=== PATIENT | female | born 1955 | race Caucasian/White ===

== ENCOUNTER 2025-10-28 18:45 | Day surgery (SDC) | payer MEDICARE, OTHER, SELFPAY ==
[2025-10-28] VITALS (7 sets, daily range): BP systolic 94–136; BP diastolic 47–64; BMI 26.5; BMI 26.2
[2025-10-28 14:58] LABS: Hematocrit 41.7 % (37.0-47.0); Hemoglobin 13.9 g/dL (12.0-16.0); Mean Corp Hgb Conc. 33.3 g/dL (33.0-37.0); Mean Corpuscular Volume 94.1 fL (81.0-99.0); Nucleated Red Blood Cells % 0 %; Platelet Count 214 10^3/uL (130-400); Red Cell Dist. Width 12.4 % (11.5-14.5)
[2025-10-28 15:22] LABS: Troponin I < 0.012 ng/ml
[2025-10-28 15:23] LABS: ALT (SGPT) 28 U/L (0-35); AST (SGOT) 315 U/L (14-36); Albumin 4.5 g/dl (3.5-5.0); Alkaline Phosphatase 194 U/L (38-126); Blood Urea Nitrogen 25 mg/dl (7-17); Calcium 9.4 mg/dl (8.4-10.2); Carbon Dioxide 31 mmol/L (22-30); Chloride 103 mmol/L (98-107); Estimated Creatinine Clearance 89 ml/min; Glucose 119 mg/dl (70-99); Potassium 4.0 mmol/L (3.5-5.1); Sodium 139 mmol/L (135-145); Total Protein 7.5 g/dl (6.3-8.2); eGFR > 60.00
--- NOTE | 2025-10-28 16:02 | ED.GENMED ---
History of Present Illness
<Erin Milligan, AGRICULTURAL APPRAISER - Last Filed: 11/01/25 07:38>
General
Chief Complaint: Chest Pain
Source: patient and spouse
Exam Limitations: none
Time Seen by Provider: 10/28/25 14:41
Nursing documentation reviewed up to this point in time: agreed with
History of Present Illness
History of Present Illness:
70 yo female w h/o Parkinson's, GERD and ran out of her Protonix recently, melanoma upper back removed w R axillary lymph node removed 08/2025, presents for episode of chest pain began today around 10 a.m. while in her bedroom looking for something.
She described the pain as a sudden onset band-like sensation across the lower chest and upper abdomen, lasting about 30 minutes. [place] nauseous but did not vomit. After the pain started, took ASA 81 mg, called 911. Laid down and felt better. Has had
no further episodes of pain.
Past History
<Erin Milligan, AGRICULTURAL APPRAISER - Last Filed: 11/01/25 07:38>
Past History
ED Past Medical History: Cancer (melanoma upper back) and Other (parkinsons, OA)
ED Past Surgical History: Gynecological, Orthopedic and Other (melanoma removed upper R back 08/2024 with lymph nodes R axilla removed)
Social History
Tobacco: Non-smoker
Employment: Employed
Review of Systems
<Erin Milligan, AGRICULTURAL APPRAISER - Last Filed: 11/01/25 07:38>
Review of Systems
Allergies reviewed?: Yes
All Other Systems: ROS reviewed and negative except as documented in HPI and ROS
Constitutional: Reports fever
Phy Exam
<Erin Milligan, AGRICULTURAL APPRAISER - Last Filed: 11/01/25 07:38>
Physical Exam
Physical Exam:
GENERAL: No acute distress. A&Ox3.
CONSTITUTIONAL: Afebrile.
EYES: clear, conjunctivae normal
ENMT: moist mucus membranes, Pharynx nl
RESPIRATORY: Regular respirations, nonlabored, lungs clear.
CARDIOVASCULAR: Regular rate and rhythm, no murmurs, no rubs.
GI: Soft, nontender, normal BS
MUSCULOSKELETAL: Moves with ease. Well perfused.
SKIN: Warm, dry, pink
PSYCH: Normal mood and affect. Well kept, interactive and appropriate
NEUROLOGIC: Awake, alert and oriented. No focal neurological deficits
Scores
<Xiang Darby PA-C - Last Filed: 10/28/25 23:38>
Heart Score for Chest Pain Patients
STEMI patient?: Not applicable
Course
<Erin Milligan NP - Last Filed: 11/01/25 07:38>
Orders/Labs/Results
Orders:
Orders
10/28/25 11:57
Electrocardiogram (*1) Urgent
Reason for Study: Chest Pain
EKG- Treatment ONCE
10/28/25 12:05
IV Insert/Care/Rem.- Treatment PRN
10/28/25 14:47
Complete Blood Count/With Diff Urgent
Comprehensive Metabolic Panel Urgent
Troponin I Urgent
10/28/25 16:09
US Abdomen Complete/Upper Urgent
Comment:
Reason For Exam: pain like a band around upper abdomen
10/28/25 16:23
0.9% Sodium Chloride 1000 ml [Nss] 1,000 ml IV BOLUS
10/28/25 16:30
Add On- LAB Urgent
Tests Added?: lipase
10/28/25 17:53
Piperacillin/Tazo 3.375 Gram [Zosyn] 3.375 gram in 50 ml IV NOW
10/28/25 18:22
Admit/Transfer Patient As Directed
Co-Sign Provider:
Level of Care: Inpatient admission
Assign to:: Medical/Surgical
Physician / Group: marino
Diagnosis: acute cholecystitis
Reason for Hospitalization: acute cholecystitis
Expected length of stay greater than two midnights?: Yes
ELOS- Estimated Length of Stay in days: 2
I certify the patient meets the requirements for IP care: Yes
10/28/25 18:23
Code Status As Directed
Resuscitation Status: Full Code
PRN Pain Medication Management As Directed
May give lesser potent ordered pain med per pt: Yes
preference::
Protocol:: Medication orders for pain may be administered in a
manner that supports deferring to patient preference
when the pt is:
- Requesting an ordered lesser potent pain medication.
Least to most potent pain medications are defined
as: acetaminophen < NSAID < tramadol < opioids
(morphine, oxycodone, hydromorphone).
- Requesting a lesser dose of the same medication IF
ORDERED.
- Requesting a less intrusive route of administration
if both routes are prescribed by the provider (PO <
IV).
10/28/25 19:21
0.9% Sodium Chloride 1000 ml [Nss] 1,000 ml IV 80 mls/hr
HYDROmorphone [Dilaudid] 0.5 mg IV Q4HPRN PRN
Ondansetron Injectable [Zofran] 4 mg IV Q6HPRN PRN
10/28/25 19:21
SURGICAL CONSULT Routine
Consulting Provider: Harley Beckford
Was physician already notified: Yes
Activity As Directed
Activity Level: As Tolerated
Pneumatic Compression Sleeves As Directed
Type: Knee high
Vital Signs As Directed
Frequency: Per unit guidelines
DX Deep Vein Thrombosis Video Routine
10/28/25 22:00
Amantadine [Symmetrel] 100 mg PO TID
carbidopa-levodopa [Crexont] See Dose Instructions PO QID
carbidopa-levodopa [Crexont] See Dose Instructions PO QID
ropinirole See Dose Instructions PO HS
ropinirole See Dose Instructions PO HS
10/29/25 00:00
Piperacillin/Tazo 3.375 Gram [Zosyn] 3.375 gram in 50 ml IV Q6H
10/29/25 Breakfast
NPO
Allow oral meds: Yes
Allow clear liquids: Sips of Clears
10/29/25 06:18
Complete Blood Count/With Diff IN AM
Comprehensive Metabolic Panel IN AM
Abnormal Lab Results
10/28/25
14:47
MCH 31.4 H pg
(27.0-31.0)
Absolute Neuts (auto) 8.0 H 10^3/uL
(1.4-6.5)
Absolute Lymphs (auto) 0.7 L 10^3/uL
(1.2-3.4)
Neutrophils % 84.9 H %
(42.2-75.2)
Lymphocytes % 7.1 L %
(20.5-51.1)
Carbon Dioxide 31 H mmol/L
(22-30)
BUN 25 H mg/dl
(7-17)
Glucose 119 H mg/dl
(70-99)
Total Bilirubin 1.5 H mg/dl
(0.2-1.3)
AST 315 H U/L
(14-36)
Alkaline Phosphatase 194 H U/L
(38-126)
10/28/25 14:47
10/28/25 14:47
Vital Signs
Initial and Last Documented VS:
Initial Vital Signs
Temp Pulse Resp BP Pulse Ox
97.6 F 71 20 136/60 97
10/28/25 11:58 10/28/25 11:58 10/28/25 11:58 10/28/25 11:58 10/28/25 11:58
Last Documented Vital Signs
Temp Pulse Resp BP Pulse Ox
97.6 F 62 18 157/99 97
10/30/25 13:15 10/30/25 14:31 10/30/25 13:15 10/30/25 14:31 10/30/25 13:15
<Xiang Darby PA-C - Last Filed: 10/28/25 23:38>
Orders/Labs/Results
Orders:
Orders
10/28/25 11:57
Electrocardiogram (*1) Urgent
Reason for Study: Chest Pain
EKG- Treatment ONCE
10/28/25 12:05
IV Insert/Care/Rem.- Treatment PRN
10/28/25 14:47
Complete Blood Count/With Diff Urgent
Comprehensive Metabolic Panel Urgent
Troponin I Urgent
10/28/25 16:09
US Abdomen Complete/Upper Urgent
Comment:
Reason For Exam: pain like a band around upper abdomen
10/28/25 16:23
0.9% Sodium Chloride 1000 ml [Nss] 1,000 ml IV BOLUS
10/28/25 16:30
Add On- LAB Urgent
Tests Added?: lipase
10/28/25 17:53
Piperacillin/Tazo 3.375 Gram [Zosyn] 3.375 gram in 50 ml IV NOW
10/28/25 18:22
Admit/Transfer Patient As Directed
Co-Sign Provider:
Level of Care: Inpatient admission
Assign to:: Medical/Surgical
Physician / Group: marino
Diagnosis: acute cholecystitis
Reason for Hospitalization: acute cholecystitis
Expected length of stay greater than two midnights?: Yes
ELOS- Estimated Length of Stay in days: 2
I certify the patient meets the requirements for IP care: Yes
10/28/25 18:23
Code Status As Directed
Resuscitation Status: Full Code
PRN Pain Medication Management As Directed
May give lesser potent ordered pain med per pt: Yes
preference::
Protocol:: Medication orders for pain may be administered in a
manner that supports deferring to patient preference
when the pt is:
- Requesting an ordered lesser potent pain medication.
Least to most potent pain medications are defined
as: acetaminophen < NSAID < tramadol < opioids
(morphine, oxycodone, hydromorphone).
- Requesting a lesser dose of the same medication IF
ORDERED.
- Requesting a less intrusive route of administration
if both routes are prescribed by the provider (PO <
IV).
10/28/25 19:21
0.9% Sodium Chloride 1000 ml [Nss] 1,000 ml IV 80 mls/hr
HYDROmorphone [Dilaudid] 0.5 mg IV Q4HPRN PRN
Ondansetron Injectable [Zofran] 4 mg IV Q6HPRN PRN
10/28/25 19:21
SURGICAL CONSULT Routine
Consulting Provider: Harley Beckford
Was physician already notified: Yes
Activity As Directed
Activity Level: As Tolerated
Pneumatic Compression Sleeves As Directed
Type: Knee high
Vital Signs As Directed
Frequency: Per unit guidelines
DX Deep Vein Thrombosis Video Routine
10/28/25 22:00
Amantadine [Symmetrel] 100 mg PO TID
carbidopa-levodopa [Crexont] See Dose Instructions PO QID
carbidopa-levodopa [Crexont] See Dose Instructions PO QID
ropinirole See Dose Instructions PO HS
ropinirole See Dose Instructions PO HS
10/29/25 00:00
Piperacillin/Tazo 3.375 Gram [Zosyn] 3.375 gram in 50 ml IV Q6H
10/29/25 Breakfast
NPO
Allow oral meds: Yes
Allow clear liquids: Sips of Clears
10/29/25 06:18
Complete Blood Count/With Diff IN AM
Comprehensive Metabolic Panel IN AM
Abnormal Lab Results
10/28/25
14:47
MCH 31.4 H pg
(27.0-31.0)
Absolute Neuts (auto) 8.0 H 10^3/uL
(1.4-6.5)
Absolute Lymphs (auto) 0.7 L 10^3/uL
(1.2-3.4)
Neutrophils % 84.9 H %
(42.2-75.2)
Lymphocytes % 7.1 L %
(20.5-51.1)
Carbon Dioxide 31 H mmol/L
(22-30)
BUN 25 H mg/dl
(7-17)
Glucose 119 H mg/dl
(70-99)
Total Bilirubin 1.5 H mg/dl
(0.2-1.3)
AST 315 H U/L
(14-36)
Alkaline Phosphatase 194 H U/L
(38-126)
10/28/25 14:47
10/28/25 14:47
Vital Signs
Initial and Last Documented VS:
Initial Vital Signs
Temp Pulse Resp BP Pulse Ox
97.6 F 71 20 136/60 97
10/28/25 11:58 10/28/25 11:58 10/28/25 11:58 10/28/25 11:58 10/28/25 11:58
Last Documented Vital Signs
Temp Pulse Resp BP Pulse Ox
97.6 F 62 18 157/99 97
10/30/25 13:15 10/30/25 14:31 10/30/25 13:15 10/30/25 14:31 10/30/25 13:15
<Erin V. Day, AGRICULTURAL APPRAISER - Last Filed: 11/01/25 07:38>
MDM/Problems Addressed
Differential Diagnosis Includes:
cholecystitis, ductal stone, biliary colic, GERD
MDM/Problems Addressed:
70 yo female w h/o Parkinson's, GERD and ran out of her Protonix recently, melanoma upper back removed w R axillary lymph node removed 08/2025, presents for episode of chest pain began today around 10 a.m. while in her bedroom looking for something.
She described the pain as a sudden onset band-like sensation across the lower chest and upper abdomen, lasting about 30 minutes. [place] nauseous but did not vomit. After the pain started, took ASA 81 mg, called 911. Laid down and felt better. Has had
no further episodes of pain.
AFebrile, NAD
EKG: NSR
CBC unremarkable
CMP Total Bili 1.5, AST 315, Alk phos 194 (this was consistent with her previous Alk phos recently at [place], reviewed labs on pt phone).
Troponin WNL
4:30 p.m.
Case discussed with Margarito LI who will assume care from this point
Pt is comfortable, awaiting US
Rx for Pantoprazole sent to her pharmacy
<Erin Milligan, AGRICULTURAL APPRAISER - Last Filed: 11/01/25 07:38>
*Pulse Oximetry
SaO2: 97
Oxygen Mode of Delivery: Room air
Patient hypoxic: no
*EKG
EKG Intrepretation Date: 10/28/25
Interpretation: normal
Heart Rate: 73
Rate: normal
Rhythm: sinus
Hurst: normal axis
Interval: normal interval
QRS Pattern: normal QRS
<Xiang Darby PA-C - Last Filed: 10/28/25 23:38>
*Critical Care Note
Total Time (30-74mins, 75-104mins- exclusive of procedures): Not Applicable
<Xiang Darby PA-C - Last Filed: 10/28/25 23:38>
Update Note
Update Note:
Assumed care of pt from Sandra Milligan AGRICULTURAL APPRAISER at shift change. Pt presenting with lower chest/upper abd pain. Initial cardiac w/u unrevealing however transaminitis noted. Awaiting US, lipase for further evaluation
1753: US results reviewed, case d/w admitting hospitalist and Gen Surg, will admit on IV abx for further surgical evaluation
ED Attending Note
<Erin Milligan AGRICULTURAL APPRAISER - Last Filed: 11/01/25 07:38>
-
Portions of this chart may have been created with voice recognition software.� Occasional wrong word or��sound alike� substitutions may have occurred due to the inherent limitations of voice recognition software.
Discharge Plan
Departure
Patient Disposition: Admit
Date of Disposition: 10/28/25
Time of Disposition: 17:54
Admit to: Med/Surg
Presentation/result/management discussed w/ accepting MD/DO: Hospitalist
Discharge Problem:
Acute calculous cholecystitis
Interventions
Interventions:
*Risk Screen - Suicide Last Done: 10/28/25 14:42
*General Assessment Last Done: 10/28/25 14:42
*Neglect/Abuse Screening Last Done: 10/28/25 14:42
*ED COVID-19 Vaccine History Last Done: 10/28/25 14:42
*ED Influenza Vaccine History Last Done: 10/28/25 14:42
[facility] Fall Risk Assessment Tool Last Done: 10/28/25 14:42
*Nursing Disposition Last Done: 10/28/25 19:10
ED- Cardiac Assessment Last Done: 10/28/25 14:42
Discharge Date and Time
Discharge Date/Time: 10/28/25 19:18
[2025-10-28] MEDS: NSS 1000 IV ×2 (16:57→20:33)
[2025-10-28] MEDS: ZOSYN 50 IV ×2 (18:08→23:19)
--- NOTE | 2025-10-28 18:25 | HPS.HSE ---
Family Physician
-
Family Physician: Chaitanya Woodson
Chief Complaint
-
chest pain
History of Present Illness
70-year-old female past medical history of Parkinson's disease, PVCs, osteoarthritis, GERD, melanoma, restless leg syndrome presenting for chest pain/abdominal pain starting this morning. Pain is sudden bandlike sensation across the lower chest and
upper abdomen lasting 30 minutes. Started after breakfast. Never had pain like this before. [place] nauseous without vomiting. Had chills without fever.
No prior history of gallstones.
Drinks alcohol occasionally.
Medical History
Past Medical History
Past Medical History: Reports Other (Parkinson's disease, PVCs, osteoarthritis, GERD, melanoma, restless leg syndrome)
Past Surgical History: Reports Other (Gynecological, Orthopedic and Other (melanoma removed upper R back 08/2024 with lymph nodes R axilla removed))
Social History
Tobacco: Non-smoker
Alcohol: Occasional
Drug: None
Family History
Family History: Not pertinent
Allergies / Home Medications
Allergies reflects when Allergies were last updated in [employer].
Home Medications with original date entered in [employer]
Allergy/Medication List:
Allergies
Allergy/AdvReac Type Severity Reaction Status Date / Time
No Known Allergies Allergy Unverified 05/27/20 14:43
Home Medications
ropinirole 12 mg tablet,extended release 24 hr 12 mg PO HS 08/27/19
amantadine HCl 100 mg capsule 100 mg PO TID 10/28/25
carbidopa 70 mg-levodopa ER 280 mg capsule,immed and extended release (Crexont) 1 cap PO QID 10/28/25
carbidopa 87.5 mg-levodopa ER 350 mg capsule,immed and extend release (Crexont) 1 cap PO QID 10/28/25
ropinirole 4 mg tablet,extended release 24 hr 4 mg PO HS 10/28/25
Review of Systems
-
History Source: Patient
A 12 point ROS was completed and negative except as noted: Yes
Constitutional: Reports No Symptoms
EENT: Reports No Symptoms
Respiratory: Reports No Symptoms
Cardiac: Reports No Symptoms
Abdomen/GI: Reports See HPI
: Reports No Symptoms
Musculoskeletal: Reports No Symptoms
Skin: Reports No Symptoms
Neurological: Reports No Symptoms
Endocrine: Reports No Symptoms
Hematologic/Lymphatic: Reports No Symptoms
Psych: Reports No Symptoms
Physical Exam
Vital Signs
Vital Signs
Temp Pulse Resp BP Pulse Ox
97.6 F 82 25 128/64 98
10/28/25 11:58 10/28/25 16:45 10/28/25 16:45 10/28/25 16:00 10/28/25 16:45
Physical Exam
General: Well Developed, Well Nourished and No Apparent Distress
HEENT: NormoCephalic, Moist mucous membranes and Atraumatic
Respiratory: Clear
Cardiac: S1/S2 and Regular Rhythm; No Murmur or Rub
GI: Soft, Non Tender, Non Distended and Normal Bowel Sounds; No Organomegaly
Rectal: Deferred by Provider
Musculoskeletal: No Clubbing, No Cyanosis and No Edema
Skin: No Rash
Neuro: Nonfocal/grossly intact
Laboratory Results
-
10/28/25 14:47
10/28/25 14:47
Laboratory Results
Total Bilirubin 1.5 mg/dl (0.2-1.3) H 10/28/25 14:47
AST 315 U/L (14-36) H 10/28/25 14:47
ALT 28 U/L (0-35) 10/28/25 14:47
Alkaline Phosphatase 194 U/L (38-126) H 10/28/25 14:47
Troponin I < 0.012 ng/ml 10/28/25 14:47
Data Reviewed
-
Lab Data: Labs Reviewed by me
Old Records: Reviewed
Impression/Plan
-
IMPRESSION:
PLAN:
# Acute cholecystitis
-Ultrasound shows acute calculous cholecystitis
-Tender in right upper quadrant
-Troponin negative
-EKG shows normal sinus rhythm
- N.p.o. past midnight
- IV fluids
- Zosyn
- General Surgery consulted
Parkinson disease
- Continue carbidopa levodopa, amantadine
Restless legs
- Continue ropinirole
Premalignant breast lesion
- Supposed to have left breast surgery tomorrow
History of PVCs
Osteoarthritis
GERD
- Continue Protonix
Melanoma
Full code
DVT prophylaxis�SCDs
N.p.o. past midnight
--- NOTE | 2025-10-28 20:20 | PTCARENOTE ---
Pt arrived onto floor via stretcher. Pt AAOx3 and a stand and pivot to the bed. Pt with no complains of pain or SOB at this time. Pt oriented to room and call guevara; will continue to monitor.
[2025-10-28] MEDS: NON-FORMULARY ITEM 1 CAP PO ×2 (22:30→22:31)
[2025-10-28] MEDS: NON-FORMULARY ITEM 1 MG PO ×2 (22:31)
[2025-10-28] MEDS: SYMMETREL 100 MG PO (22:35)
[2025-10-29] VITALS (10 sets, daily range): BP systolic 103–124; BP diastolic 41–71
[2025-10-29] MEDS: ZOSYN 50 IV ×2 (05:19→12:23)
[2025-10-29 07:18] LABS: ALT (SGPT) 71 U/L (0-35); AST (SGOT) 438 U/L (14-36); Albumin 3.3 g/dl (3.5-5.0); Alkaline Phosphatase 182 U/L (38-126); Blood Urea Nitrogen 19 mg/dl (7-17); Calcium 8.5 mg/dl (8.4-10.2); Carbon Dioxide 27 mmol/L (22-30); Chloride 110 mmol/L (98-107); Estimated Creatinine Clearance 89 ml/min; Glucose 85 mg/dl (70-99); Potassium 4.1 mmol/L (3.5-5.1); Sodium 137 mmol/L (135-145); Total Protein 5.7 g/dl (6.3-8.2); eGFR > 60.00
[2025-10-29 07:24] LABS: Lipase 74 U/L (23-300)
[2025-10-29 07:41] LABS: Hematocrit 35.2 % (37.0-47.0); Hemoglobin 11.8 g/dL (12.0-16.0); Mean Corp Hgb Conc. 33.5 g/dL (33.0-37.0); Mean Corpuscular Volume 97.5 fL (81.0-99.0); Nucleated Red Blood Cells % 0 %; Platelet Count 162 10^3/uL (130-400); Red Cell Dist. Width 12.6 % (11.5-14.5)
[2025-10-29] MEDS: NON-FORMULARY ITEM 1 CAP PO ×8 (07:58→22:26)
[2025-10-29] MEDS: SYMMETREL 100 MG PO ×3 (08:03→22:26)
[2025-10-29] MEDS: NSS 1000 IV (10:04)
--- NOTE | 2025-10-29 10:15 | CON.GS ---
Medical History
-
Chief Complaint: Abdominal pain
History of Present Illness:
Patient is a 70 yo F with a PMH of Parkinson's, GERD, OA, melanoma s/p resection with axillary LND, and LEFT breast lesion s/p radiographic marker for resection. Ms. chatman presents with upper abdominal discomfort. Symptoms began yesterday morning
shortly after a meal of eggs, pesto, and cheese. She reports severe lower chest/upper abdominal discomfort radiating in a bandlike distribution. Associated nausea, but no vomiting. Associated chills, but no fevers. She denies any jaundice, pale
stools, or tea colored urine. She denies any prior attacks of similar discomfort or gallstone issues in the past. Currently, she states that her pain is improved.
Past Medical History
Past Medical History: Cancer (Melanoma), GERD, Psychiatric (Parkinson's) and Other (Osteoarthritis)
Past Surgical History: Gynecological (D&C) and Other (Melanoma resection of the upper back and axillary LND)
Social History
Tobacco: Non-Smoker
Alcohol: Occasional
Drug: None
Family History
Family History: Reviewed & Noncontributory
Allergies / Home Medications
Allergy/AdvReac Type Severity Reaction Status Date / Time
No Known Allergies Allergy Unverified 05/27/20 14:43
�Medication �Instructions �Recorded �Confirmed �Type
ropinirole 12 mg tablet,extended 12 mg PO HS 08/27/19 10/28/25 History
release 24 hr
amantadine HCl 100 mg capsule 100 mg PO TID 10/28/25 10/28/25 History
carbidopa 70 mg-levodopa ER 280 mg 1 cap PO QID 10/28/25 10/28/25 History
capsule,immed and extended release
(Crexont)
carbidopa 87.5 mg-levodopa ER 350 1 cap PO QID 10/28/25 10/28/25 History
mg capsule,immed and extend
release (Crexont)
ropinirole 4 mg tablet,extended 4 mg PO HS 10/28/25 10/28/25 History
release 24 hr
carbidopa 25 mg-levodopa 100 mg 1 tab PO QID 10/29/25 10/29/25 History
tablet
pantoprazole 40 mg tablet,delayed 40 mg PO DAILY 10/29/25 10/29/25 History
release (Protonix)
Review of Systems
-
A 10 point review of systems was completed, and was negative except as per HPI.
Physical Exam
Vital Signs
Temp Pulse Resp BP Pulse Ox
97.7 F 65 22 116/57 96
10/29/25 07:00 10/29/25 07:00 10/29/25 07:00 10/29/25 07:00 10/29/25 07:00
10/28/25 10/29/25 10/30/25
06:59 06:59 06:59
Actual Weight 78.16 kg
Body Mass Index (BMI) 26.2
Lab Results
10/29/25 06:18
10/29/25 06:18
WBC 4.3 10^3/uL (4.8-10.8) L 10/29/25 06:18
Hgb 11.8 g/dL (12.0-16.0) L 10/29/25 06:18
Hct 35.2 % (37.0-47.0) L 10/29/25 06:18
Plt Count 162 10^3/uL (130-400) D 10/29/25 06:18
Abs Immat Gran (auto) 0.0 10^3/uL (0-0.05) 10/29/25 06:18
Neutrophils % 69.9 % (42.2-75.2) 10/29/25 06:18
Physical Exam
General: Well Developed, Well Nourished and No Apparent Distress
HEENT: Normocephalic and Anicteric
Respiratory: Non Labored Respirations
Cardiac: Regular Rhythm
GI: Soft, Non Distended, Tender (mild upper abdominal) and Other (non-peritoneal)
Musculoskeletal: No Edema
Skin: Warm and Dry
Neuro: Nonfocal/Grossly Intact
Data Reviewed
-
Ultrasound: Image Personally Visualized and interpreted and Report Reviewed by me
Labs: Labs Reviewed by me
Old Records: Reviewed
Assessment / Plan
-
Patient is a 70 yo F p/w acute cholecystitis versus choledocholithiasis
The natural history and pathophysiology of biliary and stone disease was discussed. Anatomy was reviewed. Workup thus far including labs and imaging were reviewed. Options for management were considered. Specifically, considered further workup
with MRI of the abdomen versus proceeding straight to laparoscopically cystectomy with cholangiogram. Recommend and plan for laparoscopic cholecystectomy.
Plan for laparoscopic cholecystectomy with intraoperative cholangiogram. The procedure itself, as well as the risks, benefits, and alternatives was discussed. Specifically, we discussed the risks of bleeding, infection, injury to surrounding
structures (bowel, bile ducts), CBD injury, need for open procedure. Typical postprocedural coverage including pain management, activity restrictions, and the 10 to 20% risk of fluctuations in GI function were discussed. All questions answered.
Consent signed.
-- Laparoscopic cholecystectomy with IOC
-- NPO, IVF
-- Antibiotics: Zosyn
--- NOTE | 2025-10-29 10:48 | W.PN.HOSP.TC ---
Today's Communication/Plan
-
OR today
Assessment / Plan
Assessment / Plan
Impression:
70-year-old female with past medical history of Parkinson�s disease, PVCs, osteoarthritis, GERD, melanoma, restless leg syndrome, presenting with acute chest and abdominal pain starting the morning of admission.
Pain: sudden, band-like across lower chest and upper abdomen, lasted 30 minutes, onset after breakfast
Associated symptoms: nausea (no vomiting), chills (no fever)
No prior history of gallstones
Ultrasound confirms acute calculous cholecystitis, now chest pain-free and abdominal pain-free, for OR today
Assessment/plan:
Acute Calculous Cholecystitis
Ultrasound confirms acute calculous cholecystitis
RUQ tenderness
Troponin negative, EKG normal sinus rhythm
NPO.
IV fluids
Zosyn
General Surgery consulted, for laparoscopic cholecystectomy today
Transaminitis.
Secondary to acute cholecystitis.
Continue to monitor
Acute renal failure.
Unknown recent baseline
Most recent creatinine in the system 0.6 on 2019
IV fluid.
Avoid nephrotoxin
Parkinson�s Disease
Continue carbidopa/levodopa
Continue amantadine
Restless Leg Syndrome
Continue ropinirole
Premalignant Breast Lesion
Scheduled for left breast surgery 10/29 (may need rescheduling)
History of PVCs
Monitor
Osteoarthritis
Supportive care
GERD
Continue Protonix
Melanoma status post resection
No acute issues
Code Status: Full Code
DVT Prophylaxis: SCDs
Diet: NPO for surgery
Family communication: Discussed with at bedside
Disposition: OR today
Total time spent on today's encounter was 55 minutes which included time spent in counseling the patient/family regarding diagnosis and treatment plan as listed above, goals of care, and symptom management. Case was discussed with nursing staff,
specialists, and care coordinators/case management. All labs and imaging personally reviewed by me. Remainder the time spent in detailed review of previous records, lab data, imaging, and other medical provider documentation.
Anticipated Discharge: 24 - 48 hours
Subjective/Interval History
-
Date of Service: October 29, 2025
Patient seen and examined at bedside, at bedside, denies any chest pain or shortness of breath, no abdominal pain, no nausea, no vomiting, no diarrhea or constipation.
Objective Data
-
Labs:
Laboratory Results
10/29/25
06:18
WBC 4.3 L
Hgb 11.8 L
Hct 35.2 L
Plt Count 162 D
Sodium 137
Potassium 4.1
Chloride 110 H
Carbon Dioxide 27
BUN 19 H
Creatinine 0.6
Glucose 85
Calcium 8.5
Total Bilirubin 1.6 H
AST 438 H
ALT 71 H
Alkaline Phosphatase 182 H
Vital Signs:
Vital Signs
Temp Pulse Resp BP Pulse Ox
97.7 F 65 22 116/57 96
10/29/25 07:00 10/29/25 07:00 10/29/25 07:00 10/29/25 07:00 10/29/25 07:00
Physical Exam
-
General: Well Developed, Well Nourished, No Apparent Distress and Comfortable
HEENT: Normocephalic, Atraumatic, Moist Mucous Membranes, No Ptosis, PERRLA and Nose Appears Normal
Respiratory: Clear to Auscultation and Non Labored Respirations
Cardiac: Regular Rhythm and S1/S2
Breast: Deferred by me
GI: Soft, Nontender, Nondistended and Normal Bowel Sounds
Genito-urinary: No Costovertebral Tender
Musculoskeletal: No Clubbing, No Cyanosis and No Edema
Skin: Warm
Neuro: Awake, Alert, Oriented, AO x 3 and No Motor Deficits
Psych: Calm
Data Reviewed
-
Diagnostic Radiology: Image personally visualized and interpreted and Report Reviewed by me
CT Scan: Image personally visualized and interpreted and Report Reviewed by me
Ultrasound: Image personally visualized and interpreted and Report Reviewed by me
MRI: Image personally visualized and interpreted and Report Reviewed by me
Medical Tests (Nuc Med, Echo etc): Image personally visualized and interpreted and Report Reviewed by me
Labs: Labs Reviewed by me
Old Records: Reviewed
--- NOTE | 2025-10-29 10:51 | W.SUR.PREOP ---
Pre-Operative Surgical Note
-
I have examined this patient prior to the performance of the scheduled procedure.
The patient's condition is unchanged from the time of the current History and
Physical and the patient is able to undergo the scheduled procedure.
--- NOTE | 2025-10-29 15:36 | W.IMMPOSTOP ---
Surgical Immed Post Op Note
-
Primary Surgeon: Aroldo
Assisting Surgeon: GUILLERMO Bello
Pre-op Diagnosis: Acute cholecystitis
Post-op Diagnosis: Acute cholecystitis
Procedure Performed: Laparoscopic cholecystectomy with IOC
Anesthesia Type: General
Specimen / Cultures:
1. Gallbladder
Estimated Blood Loss: 3 cc
Complications: No
Operative Findings:
1. Distended gallbladder with mildly chronic wall thickening and some edema
2. Critical view of safety
3. IOC with anatomy confirmed and no evidence of filling defect
4. Duct and artery taken with clips
--- NOTE | 2025-10-29 15:48 | CM ---
Patient off the floor to OR, spoke w/ spouse, initial assessment completed. Patient is a 70-year-old female past medical history of Parkinson's disease, PVCs, osteoarthritis, GERD, melanoma, restless leg syndrome presenting for chest pain/abdominal
pain.
Patient resides w/ spouse in a single story home, 2 steps to enter. Patient is independent primarily w/ no device, however, patient uses RW as needed. Per spouse, patient will use RW when her Parkinson's medication is wearing off. Patient has
additional grab bar and shower chair in bathroom.
No SNF/HC hx.
Address, point of contact and insurance verified
PCP: Chaitanya Doe
Pharmacy: [facility]
Plan: Home, no needs anticipated
[2025-10-29] MEDS: PROTONIX 40 MG PO (17:23)
[2025-10-29] MEDS: SINEMET 25-100 1 TABLET PO ×2 (17:25→22:26)
[2025-10-29] MEDS: LOVENOX 40 MG SC (17:25)
[2025-10-29] MEDS: ULTRAM 50 MG PO (19:58)
[2025-10-29] MEDS: NON-FORMULARY ITEM 4 MG PO (22:27)
[2025-10-29] MEDS: NON-FORMULARY ITEM 12 MG PO (22:28)
[2025-10-29] MEDS: TORADOL 10 MG IV (22:52)
[2025-10-30 03:00] VITALS: BP 143/79
[2025-10-30] MEDS: ULTRAM 50 MG PO ×2 (03:02→08:48)
[2025-10-30] MEDS: NSS 1000 IV (03:03)
[2025-10-30] MEDS: DILAUDID 0.5 MG IV (06:09)
[2025-10-30 06:56] LABS: Hematocrit 35.2 % (37.0-47.0); Hemoglobin 12.1 g/dL (12.0-16.0); Mean Corp Hgb Conc. 34.4 g/dL (33.0-37.0); Mean Corpuscular Volume 95.9 fL (81.0-99.0); Platelet Count 182 10^3/uL (130-400); Red Cell Dist. Width 12.3 % (11.5-14.5)
[2025-10-30 07:05] VITALS: BP 143/72
[2025-10-30 07:19] LABS: ALT (SGPT) 64 U/L (0-35); AST (SGOT) 179 U/L (14-36); Albumin 3.5 g/dl (3.5-5.0); Alkaline Phosphatase 205 U/L (38-126); Blood Urea Nitrogen 15 mg/dl (7-17); Calcium 8.6 mg/dl (8.4-10.2); Carbon Dioxide 24 mmol/L (22-30); Chloride 111 mmol/L (98-107); Estimated Creatinine Clearance 89 ml/min; Glucose 92 mg/dl (70-99); Potassium 3.8 mmol/L (3.5-5.1); Sodium 138 mmol/L (135-145); Total Protein 6.2 g/dl (6.3-8.2); eGFR > 60.00
[2025-10-30] MEDS: SYMMETREL 100 MG PO (08:37)
[2025-10-30] MEDS: NON-FORMULARY ITEM 1 CAP PO ×4 (08:37→12:54)
[2025-10-30] MEDS: PROTONIX 40 MG PO (08:37)
[2025-10-30] MEDS: SINEMET 25-100 1 TABLET PO ×2 (08:37→12:54)
--- NOTE | 2025-10-30 10:30 | W.PN.GS2 ---
Today's Communication / Plan
-
-- Low fat diet
-- Pain control: Tylenol, Toradol, Tramadol
-- OK for DC from surgical perspective
Assessment / Plan
-
Patient is a 70 yo F p/w acute cholecystitis POD#1 s/p laparoscopic cholecystectomy with IOC
AVSS
Labs notable for normal WBC, stable Hb, normalized downtrending bilirubin, LFTs
Recovering well overall. No postoperative concerns. Postoperative muscular soreness not unsurprising. Labs improving and IOC negative yesterday, okay for discharge from surgical perspective.
-- Low fat diet
-- Pain control: Tylenol, Toradol, Tramadol
-- Abx: None further needed from surgical perspective
-- DVT: Lovenox
-- OK for DC from surgical perspective
Subjective Data
-
Date of Service: October 30, 2025
Reports episode of severe abdominal soreness requiring narcotic pain medication use, currently well-controlled. No nausea or vomiting. Passing flatus, no BM. Afebrile.
Objective Data
-
Intake and Output
10/29/25 10/30/25 10/31/25
06:59 06:59 06:59
Intake Total 1060 / 1060
Balance 1060 / 1060
Intake:
IV fluids (Total) 1060 / 1060
Normosol 100 / 100
Other:
Number of approximated MODERATE 2 3
amounts of urine
Vital Signs
Temp Pulse Resp BP Pulse Ox
98.3 F 69 16 143/72 94
10/30/25 07:05 10/30/25 07:05 10/30/25 07:05 10/30/25 07:05 10/30/25 07:05
Lab Results
10/30/25 06:02
10/30/25 06:02
Calcium 8.6 mg/dl (8.4-10.2) 10/30/25 06:02
Total Bilirubin 0.9 mg/dl (0.2-1.3) 10/30/25 06:02
AST 179 U/L (14-36) H 10/30/25 06:02
ALT 64 U/L (0-35) H 10/30/25 06:02
Alkaline Phosphatase 205 U/L (38-126) H 10/30/25 06:02
Total Protein 6.2 g/dl (6.3-8.2) L 10/30/25 06:02
Albumin 3.5 g/dl (3.5-5.0) 10/30/25 06:02
Physical Exam
-
Gen: NAD
Abd: soft, mild tenderness, ND, non-peritoneal, incisions c/d/i - no erythema, ecchymosis or drainage
Patient has a coronado catheter: No
Patient has a central line: No
--- NOTE | 2025-10-30 11:57 | W.PN.HOSP.TC ---
Addendum entered and electronically signed by Ramon Membreno MD 10/30/25 18:04:
Acute renal failure ruled out; Creatinine at baseline
Original Note:
Today's Communication/Plan
-
Discharge planning today
Assessment / Plan
Assessment / Plan
Physical exam:
General: Well Developed, Well Nourished and No Apparent Distress
HEENT: Normocephalic, Atraumatic and Moist Mucous Membranes
Respiratory: Clear to Auscultation; Negative Wheezes, Rales or Rhonchi
Cardiac: Regular Rhythm and S1/S2
GI: Soft, Nontender and Nondistended. Postop incisions C/D/I
Musculoskeletal: No Clubbing, No Cyanosis and No Edema
Neuro: Awake, Alert and Oriented
Psych: Calm
A/P:
Impression:
70-year-old female with past medical history of Parkinson�s disease, PVCs, osteoarthritis, GERD, melanoma, restless leg syndrome, presenting with acute chest and abdominal pain starting the morning of admission.
Pain: sudden, band-like across lower chest and upper abdomen, lasted 30 minutes, onset after breakfast
Associated symptoms: nausea (no vomiting), chills (no fever)
No prior history of gallstones
Ultrasound confirms acute calculous cholecystitis, now chest pain-free and abdominal pain-free, for OR yesterday. Plan to discharge today and cleared by surgery.
Assessment/plan:
Acute Calculous Cholecystitis
Ultrasound confirms acute calculous cholecystitis
RUQ tenderness
Troponin negative, EKG normal sinus rhythm
NPO.
IV fluids
Zosyn
General Surgery consulted, for laparoscopic cholecystectomy yesterday. Plan to discharge today cleared by surgery
Transaminitis.
Secondary to acute cholecystitis.
Continue to monitor
Acute renal failure.
Unknown recent baseline
Most recent creatinine in the system 0.6 on 2018
IV fluid.
Avoid nephrotoxin
Parkinson�s Disease
Continue carbidopa/levodopa
Continue amantadine
Restless Leg Syndrome
Continue ropinirole
Premalignant Breast Lesion
Scheduled for left breast surgery 10/29 (may need rescheduling)
History of PVCs
Monitor
Osteoarthritis
Supportive care
GERD
Continue Protonix
Melanoma status post resection
No acute issues
Code Status: Full Code
DVT Prophylaxis: SCDs
Diet: Regular diet
Family communication: Discussed with at bedside
Disposition: Discharge today
Anticipated Discharge: Today
Subjective/Interval History
-
Date of Service: October 30, 2025
Patient feels well. Mild discomfort but nothing major. Isolated blood pressure being low and when repeated normal blood pressure.
Objective Data
-
Labs:
Laboratory Results
10/30/25
06:02
WBC 5.3
Hgb 12.1
Hct 35.2 L
Plt Count 182
Sodium 138
Potassium 3.8
Chloride 111 H
Carbon Dioxide 24
BUN 15
Creatinine 0.6
Glucose 92
Calcium 8.6
Total Bilirubin 0.9
AST 179 H
ALT 64 H
Alkaline Phosphatase 205 H
Vital Signs:
Vital Signs
Temp Pulse Resp BP Pulse Ox
98.3 F 69 16 143/72 94
10/30/25 07:05 10/30/25 07:05 10/30/25 07:05 10/30/25 07:05 10/30/25 07:05
I&O
10/29/25 10/30/25 10/31/25
06:59 06:59 06:59
Intake Total 1060 / 1060
Balance 1060 / 1060
--- NOTE | 2025-10-30 12:19 | W.DCSUMMARY ---
Discharge Summary
Discharge Data
Date of Admission: 10/28/25
Date of Discharge: 10/30/25
Total time spent discharging patient (in min): 35
-
Pending Results: No
Hospital Course
Patient is 70 years old female with history of Parkinson's, GERD, presented to the hospital with abdominal pain and found to have cholecystitis. Surgery consulted. Patient to go to the OR on 10/29 and did a laparoscopic cholecystectomy with IOC.
Patient did well postop. She is ambulating well, she is eating without any problems, she is afebrile, and she is hemodynamically stable. Surgery cleared her for discharge today. She will be discharged in stable condition today.
Discharge duration: 35 minutes
Discharge Plan
-
Patient Disposition: Home (Routine Discharge)
Discharge Diagnosis/Procedures: Acute cholecystitis status post laparoscopic cholecystectomy with cholangiogram
Condition: Good
Diet: Regular and Low Fat
Additional Diets: If issues of bloating or diarrhea follow a low-fat diet
Activity: No strenuous activity
Additional Activity: No heavy lifting (>20 lb) or strenuous activities for 2 to 3 weeks postoperatively.
Wound Care: Keep incisions clean and dry. Glue will flake off in 2 to 3 weeks. Stitches will dissolve. Use ice to the abdomen to reduce any bruising or swelling.
Activity Restrictions/Additional Instructions:
Call for fevers (>100.5), nausea or vomiting, worsening abdominal pain
Referrals:
Chaitanya Woodson DO [Family Provider, Family Practice]
Ad Kendrick MD [Active, Surgical] - in two to four weeks
Prescriptions:
New
acetaminophen 325 mg tablet
650 mg PO Q4HPRN PRN (Reason: mild pain) Qty: 1 0RF
ibuprofen 200 mg tablet
400 - 600 mg PO Q6HPRN PRN (Reason: moderate pain) Qty: 1 0RF
tramadol 50 mg Tablet
50 mg PO Q6HPRN PRN (Reason: severe pain) Qty: 20 0RF
Continued
ropinirole 12 MG tablet extended release 24 hr
12 mg PO HS
Crexont 70-280 mg Capsule,Ir -Extend Rel,Biphase
1 cap PO QID
amantadine HCl 100 mg Capsule
100 mg PO TID
ropinirole 4 mg Tablet Extended Release 24 Hr
4 mg PO HS
Crexont 87.5-350 mg Capsule,Ir -Extend Rel,Biphase
1 cap PO QID
pantoprazole [Protonix] 40 mg Tablet,Delayed Release (Dr/Ec)
40 mg PO DAILY
carbidopa-levodopa 25-100 mg Tablet
1 tab PO QID
Discharge Orders:
Discharge Patient (As Directed); Ordered 10/30/25
Ordered By: Ramon Membreno
Discharge Date and Time
Discharge Date/Time: 10/30/25 14:54
Print Language: SPANISH
[2025-10-30 13:15] VITALS: BP 85/55
--- NOTE | 2025-10-30 13:19 | CM ---
Patient will discharge home today
No CM needs
Met w/ patient bedside. IMM verbally reviewed, copy provided, copy on chart
Plan: Home, no needs
[2025-10-30 14:31] VITALS: BP 157/99
--- NOTE | 2025-10-30 15:06 | PN.CDI ---
CDI
- -
CDI:
Physician Documentation Request
Admit Date: 10/28/25 18:45
Dear Doctor Temi,
Clinical Indicators:
Patient admitted with Acute Calculous Cholecystitis; s/p Laparoscopic cholecystectomy 10/29.
10/30 PN, 'Acute renal failure. Unknown recent baseline Most recent creatinine in the system 0.6 on 2018'
Cr/GFR trend:
10/28/25 10/29/25 10/30/25
14:47 06:18 06:02
Creatinine 0.6 0.6 0.6
eGFR > 60.00 > 60.00 > 60.00
Please clarify which of the following accurately represents the patient's renal status:
Acute renal failure ruled out; Creatinine at baseline
Other, please specify
Criteria for ALISSA*
1 Increase in serum creatinine by > or = to 0.3 mg/dL (> or = to 26.5 micromol/L) within 48 hours, OR
2 Increase in serum creatinine to > or = to 1.5 times baseline, which is known or presumed to have occurred within 7 days, OR
3 Urine volume < 0.5 nL/kg/hour for six hours
Use of terms such as suspected, likely, concern for, or probable (associated with a specific diagnosis that is being evaluated, monitored, or treated as if it exists) are acceptable and can be coded in the inpatient setting, when documented at the
time of discharge.
Thank you,
JAY Frias RN
CDI Specialist
available via tiger text
Please use your independent medical judgment in providing your response.
*Source: Kidney Disease: Improving Global Outcomes (KDIGO) 2012
== END 2025-10-30 14:54 | disposition home or self-care (01) ==
LOC: SDS 18:45
PROVIDERS: Hospitalist; Student in an Organized Health Care Education/Training Program; Surgery; ATTENDING PHYSICIAN Hospitalist; CONSULT PHYSICIAN Surgery; EMERGENCY PHYSICIAN Emergency Medicine; FAMILY PHYSICIAN Family Medicine
DX: K80.12 Calculus of gallbladder with acute and chronic cholecystitis without obstruction (principal); G20.A1 Parkinson's disease without dyskinesia, without mention of fluctuations; I49.3 Ventricular premature depolarization; K21.9 Gastro-esophageal reflux disease without esophagitis; Z85.820 Personal history of malignant melanoma of skin; G25.81 Restless legs syndrome; N17.9 Acute kidney failure, unspecified
CPT/HCPCS: 47563; 74300; 76000; 76700; 80053; 83690; 84484; 85025; 85027; 88304; 88313; 93005; 96365; 99285; A4300

== ENCOUNTER 2025-11-05 17:26 | Emergency (ER) | payer MEDICARE, OTHER, SELFPAY ==
[2025-11-05 17:48] VITALS: BP 96/66
[2025-11-05 18:31] LABS: Hematocrit 34.4 % (37.0-47.0); Hemoglobin 11.7 g/dL (12.0-16.0); Mean Corp Hgb Conc. 34.0 g/dL (33.0-37.0); Mean Corpuscular Volume 93.2 fL (81.0-99.0); Nucleated Red Blood Cells % 0 %; Platelet Count 208 10^3/uL (130-400); Red Cell Dist. Width 12.5 % (11.5-14.5)
[2025-11-05 18:47] LABS: ALT (SGPT) 17 U/L (0-35); AST (SGOT) 18 U/L (14-36); Albumin 3.8 g/dl (3.5-5.0); Alkaline Phosphatase 141 U/L (38-126); Blood Urea Nitrogen 17 mg/dl (7-17); Calcium 9.1 mg/dl (8.4-10.2); Carbon Dioxide 26 mmol/L (22-30); Chloride 106 mmol/L (98-107); Glucose 101 mg/dl (70-99); Potassium 3.9 mmol/L (3.5-5.1); Sodium 136 mmol/L (135-145); Total Protein 6.5 g/dl (6.3-8.2); eGFR > 60.00
[2025-11-05 20:38] LABS: Urine Character Clear (Clear)
--- NOTE | 2025-11-05 20:41 | ED.GENMED ---
History of Present Illness
General
Chief Complaint: Urinary Symptoms
Source: patient, records and spouse
Exam Limitations: none
Time Seen by Provider: 11/05/25 20:24
History of Present Illness
History of Present Illness:
70yoF with a history of Parkinson's disease and recent cholecystectomy on 10/29 presenting for evaluation of UTI symptoms. She started with urinary frequency 3 days ago. She began experiencing dysuria and feeling like she was unable to completely
empty her bladder today. also states that her Parkinson's symptoms have been uncontrolled over the past few days which sometimes happens when she has an infection. He researched her symptoms online and believes she has a UTI. She denies
any fevers, chills, nausea, vomiting, flank pain. Her abdominal pain is mild and well-controlled. She has not had her postoperative appointment yet.
Past History
Past History
ED Past Medical History: Cancer (melanoma upper back) and Other (parkinsons, OA)
ED Past Surgical History: Gynecological, Orthopedic and Other (melanoma removed upper R back 08/2024 with lymph nodes R axilla removed)
Social History
Tobacco: Non-smoker
Employment: Employed
Phy Exam
General Physical Exam
General Presentation: well appearing and no apparent distress
General Skin: warm and dry
General Habitus: normal
General Mental: alert
ENT Exam
ENT Exam: normocephalic
Pulmonary Exam
Pulmonary Exam: lungs clear, no respiratory distress, no rales, no crackles, no rhonchi and no wheezing
Gastrointestinal Exam
Gastrointestinal Exam: soft, non distended, no cva tenderness and other (Appropriate incisional tenderness noted. Abdomen soft, non-distended. No rebound or guarding. Incisions c/d/i)
Neurological Exam
Neurological Exam: alert and other (Diffuse body tremors noted)
Deann Coma Scale
Eye Opening: Spontaneous
Verbal Response: Oriented
Motor Response: Obeys Commands
GCS Total Score: 15
Skin Exam
Skin Exam: normal color and warm/dry
Psychiatric Exam
Psychiatric Exam: normal mood/affect
Course
Orders/Labs/Results
Orders:
Orders
11/05/25 18:21
Complete Blood Count/With Diff Urgent
Comprehensive Metabolic Panel Urgent
11/05/25 20:31
Urinalysis Reflex To Culture Urgent
Date Specimen was Collected: 11/05/25
Time Specimen was Collected: 17:54
Urine Microscopic Reflex Cult Urgent
Urine Culture Urgent
CHAVA Source: U
Specimen Description:
Date Specimen was Collected: 11/05/25
Time Specimen was Collected: 17:54
11/05/25 20:57
Rapid Strep Group A Urgent
CHAVA Source: Throat/Pharynx
Specimen Description:
Date Specimen was Collected: 11/05/25
Time Specimen was Collected: 20:55
11/05/25 21:13
Cefdinir [Omnicef] 300 mg PO NOW STA
Abnormal Lab Results
11/05/25 11/05/25
18:21 20:31
RBC 3.69 L 10^6/uL
(4.20-5.40)
Hgb 11.7 L g/dL
(12.0-16.0)
Hct 34.4 L %
(37.0-47.0)
MCH 31.7 H pg
(27.0-31.0)
MPV 10.9 H fL
(7.4-10.4)
Absolute Neuts (auto) 7.0 H 10^3/uL
(1.4-6.5)
Absolute Lymphs (auto) 1.0 L 10^3/uL
(1.2-3.4)
Absolute Monos (auto) 0.8 H 10^3/uL
(0.1-0.6)
Neutrophils % 76.5 H %
(42.2-75.2)
Lymphocytes % 11.3 L %
(20.5-51.1)
Glucose 101 H mg/dl
(70-99)
Alkaline Phosphatase 141 H U/L
(38-126)
Urine Ketones 2+ A
(Negative)
Ur Occult Blood Reflex 1+ A
(Negative)
Urine Urobilinogen 2+ A
(Neg - 1+)
Leukocyte Esterase Rfl 3+ A
(Negative)
Urine RBC 11-15 A /HPF
(0-2)
Urine WBC (Reflex) 70-80 A /HPF
(0-5)
Urine Bacteria (Reflex) Moderate A
(Negative)
Urine Albumin (Reflex) 2+ A
(Neg - Trace)
11/05/25 18:21
11/05/25 18:21
Vital Signs
Initial and Last Documented VS:
Initial Vital Signs
Temp Pulse Resp BP Pulse Ox
98.4 F 78 16 96/66 99
11/05/25 17:48 11/05/25 17:48 11/05/25 17:48 11/05/25 17:48 11/05/25 17:48
Last Documented Vital Signs
Temp Pulse Resp BP Pulse Ox
98.0 F 78 16 123/103 99
11/05/25 21:13 11/05/25 17:48 11/05/25 17:48 11/05/25 21:13 11/05/25 20:42
MDM/Problems Addressed
Differential Diagnosis Includes:
70yoF here with UTI symptoms x 3 days. Also with worsening Parkinson's symptoms which typically occurs with infection. No f/c. No vomiting or flank pain. BP 96/66 in triage which patient states is normal for her. Temp 98.4 and remainder of vitals
stable. She is well appearing on exam. No CVA tenderness noted. Differential diagnosis includes: UTI, urinary retention, no clinical evidence of pyelonephritis
Labs obtained in triage and white count and renal function normal. UA checked which shows 70-80 WBCs and moderate bacteria consistent with UTI. No indication for hospitalization and patient and both feel comfortable with outpatient
management. She was started on a course of cefdinir and first dose given in ED. Advised f/u with PCP and ED return precautions reviewed. Patient discharged in stable condition.
*Pulse Oximetry
SaO2: 99
Oxygen Mode of Delivery: Room air
Patient hypoxic: no
*Critical Care Note
Total Time (30-74mins, 75-104mins- exclusive of procedures): Not Applicable
ED Attending Note
-
Portions of this chart may have been created with voice recognition software.� Occasional wrong word or��sound alike� substitutions may have occurred due to the inherent limitations of voice recognition software.
Discharge Plan
Departure
Patient Disposition: Home (Routine Discharge)
Date of Disposition: 11/05/25
Time of Disposition: 21:16
Patient with high blood pressure during this ER visit?: No
Discharge Problem:
Urinary tract infection
Instructions: Urinary Tract Infection, Adult (DC)
Prescriptions:
New
cefdinir 300 mg capsule
300 mg PO BID 7 Days Qty: 13 0RF
No Action
ropinirole 12 MG tablet extended release 24 hr
12 mg PO HS
Crexont 70-280 mg Capsule,Ir -Extend Rel,Biphase
1 cap PO QID
amantadine HCl 100 mg Capsule
100 mg PO TID
ropinirole 4 mg Tablet Extended Release 24 Hr
4 mg PO HS
Crexont 87.5-350 mg Capsule,Ir -Extend Rel,Biphase
1 cap PO QID
pantoprazole [Protonix] 40 mg Tablet,Delayed Release (Dr/Ec)
40 mg PO DAILY
carbidopa-levodopa 25-100 mg Tablet
1 tab PO QID
acetaminophen 325 mg tablet
650 mg PO Q4HPRN PRN (Reason: mild pain) Qty: 1 0RF
ibuprofen 200 mg tablet
400 - 600 mg PO Q6HPRN PRN (Reason: moderate pain) Qty: 1 0RF
tramadol 50 mg Tablet
50 mg PO Q6HPRN PRN (Reason: severe pain) Qty: 20 0RF
Referrals:
Chaitanya Woodson DO [Family Provider, Family Practice]
Activity Restrictions/Additional Instructions:
Take antibiotics as prescribed. Drink plenty of fluids and stay hydrated.
Please follow-up with your family doctor. Return to the ER with any new or worsening symptoms including fevers, chills, vomiting, or flank pain.
Interventions
Interventions:
*Risk Screen - Suicide Last Done: 11/05/25 17:48
*General Assessment Last Done: 11/05/25 21:13
*Neglect/Abuse Screening Last Done: 11/05/25 17:48
*ED COVID-19 Vaccine History Last Done: 11/05/25 21:13
*ED Influenza Vaccine History Last Done: 11/05/25 21:13
*Nursing Disposition Last Done: 11/05/25 21:39
ED-Female Genitourinary Assessment Last Done: 11/05/25 21:39
Discharge Date and Time
Discharge Date/Time: 11/05/25 21:40
Print Language: MEXICAN
[2025-11-05 20:49] LABS: Urine Squamous Cell 21-25 /LPF (Few); Urine Urothelial Cell 0-2 /LPF (FEW)
[2025-11-05 20:50] LABS: Urine White Cell Cast 0-2 /LPF
[2025-11-05 20:52] LABS: Urine White Cell 70-80 /HPF (0-5)
[2025-11-05 21:13] VITALS: BP 123/103
[2025-11-05] MEDS: OMNICEF 300 MG PO (21:22)
== END 2025-11-05 21:40 | disposition home or self-care (01) ==
LOC: EMR 17:26
PROVIDERS: Emergency Medicine; EMERGENCY PHYSICIAN Emergency Medicine; FAMILY PHYSICIAN Family Medicine
DX: N39.0 Urinary tract infection, site not specified (principal); B96.20 Unspecified Escherichia coli [E. coli] as the cause of diseases classified elsewhere; G20.A1 Parkinson's disease without dyskinesia, without mention of fluctuations; M19.90 Unspecified osteoarthritis, unspecified site; Z85.820 Personal history of malignant melanoma of skin
CPT/HCPCS: 99283; 80053; 81003; 81015; 85025; 87070; 87077; 87086; 87186; 87880

== ENCOUNTER 2025-11-06 01:21 | Emergency (ER) | payer MEDICARE, OTHER, SELFPAY ==
[2025-11-06 01:23] VITALS: BP 122/43
[2025-11-06 01:27] VITALS: BMI 27.5
[2025-11-06 01:38] VITALS: BP 130/46
--- NOTE | 2025-11-06 01:39 | EDRN ---
Pt states 'i felt like someone was following us home on [address] after leaving here. They had their lights off and they followed us all the way home'. Pt also reports hearing someone talking in the basement yesterday yet told her no one was down
in the basement. Pt states she feels unsafe at home because she believes someone was outside her house. Pt feels safe with her and family. Pt was in ER yesterday, 11/06/25, with a UTI and discharged home on antibiotics. Pt also has a hx of
parkinsons and a recent gallbladder removal.
Per , when arriving at home after discharge pt was 'acting belligerent', not allowing him to see her phone, and singing.
--- NOTE | 2025-11-06 02:00 | ED.GENMED ---
Addendum entered and electronically signed by Xiang Darby PA-C 11/09/25 06:45:
On cefdinir, appropriate therapy per C&S
Original Note:
History of Present Illness
General
Chief Complaint: Hallucinations
Source: patient, spouse and ambulance crew
Exam Limitations: none
Time Seen by Provider: 11/06/25 01:35
Nursing documentation reviewed up to this point in time: agreed with
History of Present Illness
History of Present Illness:
Patient with history of Parkinson's disease, status post cholecystectomy last week, seen in ED earlier tonight and diagnosed with UTI and started on antibiotics, returns to ED after patient called 911, as she continued to hear voices and felt as
though someone was inside her house and outside. In addition, patient states that as she was going home from ED earlier, triggered by her , she felt as though there was a car without headlights on, following them. Per , patient has
had nonspecific hallucinations in the past, which has been discussed with patient's neurologist. Patient otherwise has no additional complaints. Denies abdominal pain. Denies nausea or vomiting. Denies fever. Denies loss of appetite. For the
past 3 days, patient has had urinary frequency, urgency, and dysuria.
Past History
Past History
ED Past Medical History: Cancer (melanoma upper back) and Other (parkinsons, OA)
ED Past Surgical History: Gynecological, Orthopedic and Other (melanoma removed upper R back 08/2024 with lymph nodes R axilla removed)
Social History
Tobacco: Non-smoker
Employment: Employed
Review of Systems
Review of Systems
Allergies reviewed?: Yes
All Other Systems: ROS reviewed and negative except as documented in HPI and ROS
Constitutional: Reports no symptoms; Denies fever
ABD/GI: Reports no symptoms; Denies vomiting or diarrhea
: Reports dysuria, frequency and urgency
Musculoskeletal: Reports no symptoms
Skin: Reports no symptoms
Neurological: Reports other (Visual and auditory hallucination); Denies headache
Phy Exam
Physical Exam
Physical Exam:
Physical Exam
General: no apparent distress, not acutely ill. afebrile
Head: nc/at. eomi
Neck: supple. normal range of motion
Heart: s1/s2 regular rate and rhythm
Lungs: no acute respiratory distress. clear bilaterally
Abdomen: normal bowel sounds. not tender.
Neuro: alert and oriented x 3. no focal neurological deficits. intermittent UE movement noted
Skin: no rash
Psychiatric: well kept. interactive and cooperative
Extremities: no edema. no calf tenderness.
Course
Orders/Labs/Results
Orders:
Orders
11/06/25 01:53
Blood Culture Urgent
[facility] Source: Blood/Venous
Specimen Description:
Blood Culture Urgent
[facility] Source: Blood/Venous
Specimen Description:
Vital Signs
Initial and Last Documented VS:
Initial Vital Signs
Pulse Resp BP Pulse Ox
82 16 122/43 96
11/06/25 01:23 11/06/25 01:23 11/06/25 01:23 11/06/25 01:23
Last Documented Vital Signs
Temp Pulse Resp BP Pulse Ox
98.1 F 79 25 130/46 95
11/06/25 02:10 11/06/25 01:45 11/06/25 01:45 11/06/25 01:38 11/06/25 02:00
MDM/Problems Addressed
MDM/Problems Addressed:
Patient's ED chart from earlier visit reviewed, as well as blood work and urinalysis. Patient was given Omnicef at time of discharge, which I feel is appropriate. History and exam consistent with UTI, although hallucination/mental status change,
is concerning for potential bacteremia, especially with recent cholecystectomy. As such, discussed treatment options with patient and her, including admission for IV antibiotics. However, at this time, patient and spouse feel comfortable going
home and will follow-up with PCP as an outpatient, or return to ED with worsening symptoms. Offered case management consultation in the morning for potential home RN visitation. However, at this time, patient and spouse declined the offer. Return
precautions provided.
Urine culture pending. Blood culture pending.
*Pulse Oximetry
SaO2: 95
Oxygen Mode of Delivery: Room air
Patient hypoxic: no
*Critical Care Note
Total Time (30-74mins, 75-104mins- exclusive of procedures): Not Applicable
ED Attending Note
-
Portions of this chart may have been created with voice recognition software.� Occasional wrong word or��sound alike� substitutions may have occurred due to the inherent limitations of voice recognition software.
Discharge Plan
Departure
Patient Disposition: Home (Routine Discharge)
Date of Disposition: 11/06/25
Time of Disposition: 02:00
Patient with high blood pressure during this ER visit?: Yes
Condition: Fair
Discharge Problem:
Acute UTI, Hallucination, Parkinson's disease
Instructions: Parkinson disease, Urinary tract infection in adults - ED (DC)
Prescriptions:
No Action
ropinirole 12 MG tablet extended release 24 hr
12 mg PO HS
Crexont 70-280 mg Capsule,Ir -Extend Rel,Biphase
1 cap PO QID
amantadine HCl 100 mg Capsule
100 mg PO TID
ropinirole 4 mg Tablet Extended Release 24 Hr
4 mg PO HS
Crexont 87.5-350 mg Capsule,Ir -Extend Rel,Biphase
1 cap PO QID
pantoprazole [Protonix] 40 mg Tablet,Delayed Release (Dr/Ec)
40 mg PO DAILY
carbidopa-levodopa 25-100 mg Tablet
1 tab PO QID
acetaminophen 325 mg tablet
650 mg PO Q4HPRN PRN (Reason: mild pain) Qty: 1 0RF
ibuprofen 200 mg tablet
400 - 600 mg PO Q6HPRN PRN (Reason: moderate pain) Qty: 1 0RF
tramadol 50 mg Tablet
50 mg PO Q6HPRN PRN (Reason: severe pain) Qty: 20 0RF
cefdinir 300 mg capsule
300 mg PO BID 7 Days Qty: 13 0RF
Activity Restrictions/Additional Instructions:
As discussed, please follow-up with your primary care physician and neurologist for continual evaluation and treatment. Please consider return to ED with worsening symptoms.
Interventions
Interventions:
*Risk Screen - Suicide Last Done: 11/06/25 01:27
*General Assessment Last Done: 11/06/25 01:27
*Neglect/Abuse Screening Last Done: 11/06/25 01:27
*ED COVID-19 Vaccine History Last Done: 11/06/25 01:27
*ED Influenza Vaccine History Last Done: 11/06/25 01:27
[facility] Fall Risk Assessment Tool Last Done: 11/06/25 01:35
*Nursing Disposition Last Done: 11/06/25 02:18
ED-Suicide Risk Assessment Last Done: 11/06/25 01:33
ED- Neurological Assessment Last Done: 11/06/25 01:29
ED-Psychological Assessment Last Done: 11/06/25 01:29
Discharge Date and Time
Discharge Date/Time: 11/06/25 02:18
Print Language: DANISH
== END 2025-11-06 02:18 | disposition home or self-care (01) ==
LOC: EMR 01:21
PROVIDERS: EMERGENCY PHYSICIAN Emergency Medicine; FAMILY PHYSICIAN Family Medicine
DX: N39.0 Urinary tract infection, site not specified (principal); R44.3 Hallucinations, unspecified; G20.A1 Parkinson's disease without dyskinesia, without mention of fluctuations; M19.90 Unspecified osteoarthritis, unspecified site; Z85.820 Personal history of malignant melanoma of skin; Z87.440 Personal history of urinary (tract) infections; Z90.49 Acquired absence of other specified parts of digestive tract
CPT/HCPCS: 99282; 87040